=== PATIENT | female | born 1950 | race Caucasian/White ===

== ENCOUNTER 2020-06-20 16:30 | Emergency (ER) | payer MEDICARE ==
[~2020-06-20] VITALS: Ht 157.5 cm; Wt 54.4 kg
--- NOTE | 2020-06-20 16:57 | Emergency Room Report ---
History of Present Illness General Chief Complaint: To Be Triaged Source: Patient Present Illness Allergies: Coded Allergies: PENICILLINS (Verified Allergy, Unknown, 06/20/20) COVID-19 Screening Contact w/high risk pt: No Experienced COVID-19 symptoms?: No COVID-19 Testing performed OPTICAL FABRICATION TECHNICIAN: No Nursing Documentation-PMH Hx Asthma: Yes Physical Exam Vital Signs Date Time Temp Pulse Resp B/P (MAP) Pulse Ox O2 Delivery O2 Flow Rate FiO2 06/20/20 16:24 98.1 104 20 110/67 (81) 98 Room Air Medical Decision Making PA Attestation Dr. Caba Is my supervising Physician whom patient management has been discussed with. Diagnostic Impression: Primary Impression: Encounter for medical screening examination Additional Impression: History of fall ER Course Pt. presents to the ED c/o having a mechanical trip and fall approximately 30 minutes prior to arrival. Patient is brought by EMS. Patient denies significant past medical history. She denies pain. She denies open wounds or bleeding. Patient denies having any symptoms that she specifically wants to be evaluated for. Denies CP, Palpitations, LOC, AMS, dizziness, Changes in Vision , Sensation, paresthesias, or a sudden severe headache. Ddx considered but are not limited to fracture, strain, laceration, abrasion, head injury, neck injury. Vital signs: are WNL, pt. is afebrile H&PE are most consistent with normal emergency medical screening exam. Pt. is A&O x 4. ORDERS: none required at this time, the diagnosis is clinical ED INTERVENTIONS: None required at this time. DISCHARGE: At this time pt. is stable for d/c to home. Will provide printed patient care instructions, and any necessary prescriptions. Care plan and follow up instructions have been discussed with the patient prior to discharge. Last Vital Signs Date Time Temp Pulse Resp B/P (MAP) Pulse Ox O2 Delivery O2 Flow Rate FiO2 06/20/20 16:24 98.1 104 20 110/67 (81) 98 Room Air Disposition: HOME, SELF-CARE Condition: Stable Patient Instructions: Medical Screening Exam Additional Instructions: Take medications as directed. Follow up with a Primary Care Provider in 3-5 days, even if your symptoms have resolved. --Please review list of primary care clinics, if you do not already have a primary care provider Return sooner to ED if new symptoms occur, or current symptoms become worse. - Please note that this Emergency Department Report was dictated using [employer] technology software, occasionally this can lead to erroneous entry secondary to interpretation by the dictation equipment. Aparna Ventura Jun 20, 2020 16:57
--- NOTE | 2020-06-20 17:00 | NUR ---
ED Nurse Note:pt. was BIBA from with general weakness, pt. is a/Ox3 ambulatory with unsteady gait, skin is intact, no fall reported,
[2020-06-20 17:14] VITALS: BP 110/67
[2020-06-20 18:15] VITALS: BP 110/67
--- NOTE | 2020-06-20 18:15 | NUR ---
ED Nurse Note:pt. was cleared for d/c home by ER PA, she was provided with d/c instructions and taxi ride home and took all personal belongings with her
== END 2020-06-20 18:30 | disposition home or self-care (01) ==
LOC: EDBD 16:30 → EMR 17:34
DX: Z13.9 Encounter for screening, unspecified (principal); W01.0XXA Fall on same level from slipping, tripping and stumbling without subsequent striking against object, initial encounter; Y93.9 Activity, unspecified; Y92.9 Unspecified place or not applicable; Z88.0 Allergy status to penicillin
CPT/HCPCS: 99281